=== PATIENT | female | born 1975 | race Two or more races ===

== ENCOUNTER 2017-12-16 19:51 | Emergency (ER) | payer OTHER ==
[2017-12-16] MEDS ORDERED: silver sulfADIAZINE 1% CREAM 25GM TUBE. TP (20:59)
[2017-12-16] MEDS: silver sulfADIAZINE 1% CREAM 25GM TUBE. TP (21:05)
== END 2017-12-16 21:07 | disposition home or self-care (01) ==
LOC: ER 19:51
DX: T23.221A Burn of second degree of single right finger (nail) except thumb, initial encounter (principal); Z79.899 Other long term (current) drug therapy; X19.XXXA Contact with other heat and hot substances, initial encounter; Y93.89 Activity, other specified; Y92.89 Other specified places as the place of occurrence of the external cause; Y99.8 Other external cause status
CPT/HCPCS: 99283